=== PATIENT | male | born 2000 | race Caucasian/White ===

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

== ENCOUNTER 2020-08-31 12:59 | Emergency (ER) | payer MEDICAID ==
[~2020-08-31] VITALS: Ht 172.7 cm; Wt 71.8 kg
--- NOTE | 2020-08-31 13:38 | NUR ---
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
[2020-08-31] MEDS ORDERED: HYDROcodone/APAP 5/325 TABLET PO ONE (14:00)
[2020-08-31 14:04] VITALS: BP 114/84
[2020-08-31] MEDS ORDERED: HYDROcodone/APAP 5/325 TABLET ONE (14:32)
--- NOTE | 2020-08-31 14:45 | NUR ---
DISCHARGE INSTRUCTIONS REVIEWED, PT EDUCATED ON PRESCRIPTION, RETURN CRITERIA, AND FOLLOW UP. VERBALIZED UNDERSTANDING. AMBULATORY TO DISCHARGE DESK WITH STEADY GAIT, ACCOMPANIED BY MOTHER.
== END 2020-08-31 14:45 | disposition home or self-care (01) ==
LOC: ED 14:25
DX: K02.9 Dental caries, unspecified (principal); J45.909 Unspecified asthma, uncomplicated; F17.210 Nicotine dependence, cigarettes, uncomplicated
CPT/HCPCS: 99283